=== PATIENT | male | born 1985 | race Caucasian/White ===

== ENCOUNTER 2018-11-23 21:53 | Emergency (ER) | payer MEDICAID ==
[~2018-11-23] VITALS: Ht 175.3 cm; Wt 122.7 kg
[~2018-11-23 21:53] MED LIST: NO HOME MEDICATIONS; NORCO 325 MG-51 TAB PO
[2018-11-23 21:59] VITALS: BP 143/79; PULSE 90; TEMP 97.5
[2018-11-23] MEDS ORDERED: NORCO 325 MG-51 TAB PO (23:03)
== END 2018-11-23 23:23 | disposition home or self-care (01) ==
LOC: COL.ER 21:53
DX: S43.101A Unspecified dislocation of right acromioclavicular joint, initial encounter (principal); V16.4XXA Pedal cycle driver injured in collision with other nonmotor vehicle in traffic accident, initial encounter